=== PATIENT | female | born 2000 | race Hispanic/Latino ===

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

== ENCOUNTER 2021-05-05 23:56 | Emergency (ER) | payer OTHER, SELFPAY ==
[2021-05-06 01:26] LABS: Absolute Lymphocytes (CBC) 1.7 K/uL (0.7-4.9); Hematocrit 33.9 % (36.0-45.0); Lymphocytes % 22.7 % (15.3-44.8); MPV 8.9 fL (7.6-11.3); RBC Red Blood Cell Count 3.67 M/uL (3.86-4.86)
[2021-05-06 01:29] LABS: Urine Blood 3+ (Negative); Urine Glucose Negative (Negative); Urine Protein Negative (Negative); Urine Specific Gravity 1.025 (1.005-1.030); Urine pH 6.5 (5.0-7.0)
[2021-05-06 02:10] LABS: Urine Specific Gravity/Preg 1.025 (1.005-1.030)
[2021-05-06 03:06] LABS: ALT/SGPT 15 U/L (12-78); AST/SGOT 16 U/L (15-37); Albumin 4.2 g/dL (3.4-5.0); Alkaline Phosphatase 56 U/L (45-117); BUN Blood Urea Nitrogen 10 mg/dL (7-18); Bicarbonate 23 mmol/L (21-32); Bilirubin Total 0.8 mg/dL (0.2-1.0); Glucose Level 119 mg/dL (74-106); Lipase 120 U/L (73-393); Potassium 3.8 mmol/L (3.5-5.1); Protein, Total 7.8 g/dL (6.4-8.2); Sodium Level 138 mmol/L (136-145)
--- NOTE | 2021-05-06 05:53 | ER ---
Nurse's Notes [facility] Name: Nava Maciel Age: 20 yrs Sex: Female : 2000 Arrival Date: 05/06/2021 Time: 00:02 Bed 20 Private MD: Diagnosis: Abdominal pain, Generalized;Other specified abnormal uterine and vaginal bleeding;Threatened Presentation: 05/06 00:55 Chief complaint: Patient states: "I am having lower abdominal pain, I think it's my as6 appendix, it's hard for me to move around" pt says she is having N/V/D, denies urinary symptoms. Coronavirus screen: At this time, the client does not indicate any symptoms associated with coronavirus-19. Ebola Screen: No symptoms or risks identified at this time. Initial Sepsis Screen: Does the patient meet any 2 criteria? No. Patient's initial sepsis screen is negative. Does the patient have a suspected source of infection? No. Patient's initial sepsis screen is negative. Risk Assessment: Do you want to hurt yourself or someone else? Patient reports no desire to harm self or others. Onset of symptoms was May 05, 2021. 00:55 Method Of Arrival: Ambulatory as6 00:55 Acuity: BRUNO 3 as6 Triage Assessment: 01:01 General: Appears uncomfortable, Behavior is calm, cooperative. Pain: Complains of pain as6 in right lower quadrant and left lower quadrant Quality of pain is described as crampy. GI: Reports lower abdominal pain, diarrhea, nausea, vomiting. 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 - Social history:: Smoking status: Patient denies any tobacco usage or history of. Screenin:45 Abuse screen: Denies threats or abuse. Denies injuries from another. Nutritional froylan screening: No deficits noted. Tuberculosis screening: No symptoms or risk factors identified. Fall Risk None identified. Assessment: 02:10 Reassessment: I recv'd the pt to room 20 at this time. froylan 02:45 GI: Bowel sounds. froylan 02:46 GI: Abd is soft and non tender X 4 quads. froylan 03:03 Reassessment: US is at bedside performing the exam. froylan 05:56 Reassessment: The pt has been dc'd and I am awaiting dc instructions to print. froylan 06:41 Reassessment: Per Dr. Burgess, we are waiting on the beta. froylan Vital Signs: 00:55 BP 98 / 68; Pulse 81; Resp 18 S; Temp 99.5(TE); Pulse Ox 100% on R/A; Weight 52.16 kg as6 (R); Height 5 ft. 1 in. (154.94 cm) (R); Pain 7/10; 02:15 BP 115 / 70; Pulse 101; Resp 16; Temp 98.8; Pulse Ox 100% on R/A; Pain 1/10; froylan 02:45 BP 107 / 63; Pulse 94; Resp 16; Pulse Ox 100% on R/A; Pain 1/10; froylan 04:57 BP 106 / 54; Pulse 88; Resp 16; Temp 98.5; Pulse Ox 100% on R/A; Pain 0/10; froylan 05:56 BP 105 / 63; Pulse 88; Resp 16; Temp 98.5; Pulse Ox 100% on R/A; Pain 0/10; froylan 07:08 BP 109 / 66; Pulse 81; Resp 16; Pulse Ox 99% on R/A; ab2 00:55 Body Mass Index 21.73 (52.16 kg, 154.94 cm) as6 ED Course: 00:02 Patient arrived in ED. wm 00:23 Leoncio Burgess MD is Attending Physician. kdr 01:00 Triage completed. as6 01:01 Arm band placed on. as6 01:08 Missed attempt(s): 20 gauge in right antecubital area. Bleeding controlled, band aid as6 applied, catheter tip intact. 01:14 CBC with Diff Sent. as6 01:14 CMP Sent. as6 01:14 Lipase Sent. as6 02:10 Sandra Reyes, RN is Primary Nurse. froylan 02:45 No provider procedures requiring assistance completed. froylan 02:46 Patient has correct armband on for positive identification. Bed in low position. Call froylan light in reach. 03:54 TRANSVAG OB In Process Unspecified. EDMS 07:08 Patient did not have IV access during this emergency room visit. ab2 Administered Medications: No medications were administered Outcome: 02:46 Condition: stable froylan 05:52 Discharge ordered by . kdr 07:08 Discharged to home ambulatory, with family. ab2 07:08 Discharge instructions given to patient, family, Instructed on discharge instructions, follow up and referral plans. Demonstrated understanding of instructions, follow-up care. 07:09 Patient left the ED. ab2 Signatures: Dispatcher [employer] EDIL Leoncio Burgess MD MD kdr Marsh, Wendy wm Slawson, Ashby, RN RN as6 Sandra Reyes RN RN Wyatt Chand ab2
--- NOTE | 2021-05-06 05:53 | EDPHYS ---
Physician Documentation [facility] Name: Nava Maciel Age: 20 yrs Sex: Female : 2000 Arrival Date: 05/06/2021 Time: 00:02 Bed 20 Private MD: ED Physician Leoncio Burgess HPI: 05/06 06:34 This 20 yrs old Female presents to ER via Ambulatory with complaints of kdr Abdominal Pain. 06:34 The patient presents with abdominal pain that is diffuse. kdr LEAK HUNTER: 01:02 LMP 04/30/2021 as6 Historical: - Allergies: 01:00 No Known Allergies; as6 - Home Meds: 01:00 None [Active]; as6 - PMHx: 01:00 None; as6 - PSHx: 01:00 None; as6 - Immunization history:: Client reports receiving the 2nd dose of the Covid vaccine, pfizer. - Social history:: Smoking status: Patient denies any tobacco usage or history of. ROS: 06:35 Constitutional: Negative for fever, chills, and weight loss, Eyes: Negative for injury, kdr pain, redness, and discharge, Neck: Negative for injury, pain, and swelling, Cardiovascular: Negative for chest pain, palpitations, and edema, Respiratory: Negative for shortness of breath, cough, wheezing, and pleuritic chest pain, Back: Negative for injury and pain, MS/Extremity: Negative for injury and deformity, Skin: Negative for injury, rash, and discoloration, Neuro: Negative for headache, weakness, numbness, tingling, and seizure activity. Psych: Negative for depression, anxiety, suicide ideation, homicidal ideation, and hallucinations, Allergy/Immunology: Negative for hives, rash, and allergies, Endocrine: Negative for neck swelling, polydipsia, polyuria, polyphagia, and marked weight changes, Hematologic/Lymphatic: Negative for swollen nodes, abnormal bleeding, and unusual bruising. 06:35 Abdomen/GI: Positive for abdominal pain, nausea, abdominal cramps, Negative for black/tarry stool, rectal pain, rectal bleeding, bowel incontinence. Exam: 06:35 Constitutional: This is a well developed, well nourished patient who is awake, alert, kdr and in no acute distress. Head/Face: Normocephalic, atraumatic. Eyes: Pupils equal round and reactive to light, extra-ocular motions intact. Lids and lashes normal. Conjunctiva and sclera are non-icteric and not injected. Cornea within normal limits. Periorbital areas with no swelling, redness, or edema. Neck: Trachea midline, no thyromegaly or masses palpated, and no cervical lymphadenopathy. Supple, full range of motion without nuchal rigidity, or vertebral point tenderness. No Meningismus. Chest/axilla: Normal chest wall appearance and motion. Nontender with no deformity. No lesions are appreciated. Cardiovascular: Regular rate and rhythm with a normal S1 and S2. No gallops, murmurs, or rubs. Normal PMI, no JVD. No pulse deficits. Respiratory: Lungs have equal breath sounds bilaterally, clear to auscultation and percussion. No rales, rhonchi or wheezes noted. No increased work of breathing, no retractions or nasal flaring. Back: No spinal tenderness. No costovertebral tenderness. Full range of motion. Skin: Warm, dry with normal turgor. Normal color with no rashes, no lesions, and no evidence of cellulitis. MS/ Extremity: Pulses equal, no cyanosis. Neurovascular intact. Full, normal range of motion. Neuro: Awake and alert, GCS 15, oriented to person, place, time, and situation. Cranial nerves II-XII grossly intact. Motor strength 5/5 in all extremities. Sensory grossly intact. Cerebellar exam normal. Normal gait. Psych: Awake, alert, with orientation to person, place and time. Behavior, mood, and affect are within normal limits. 06:35 Abdomen/GI: Inspection: abdomen appears normal, Bowel sounds: active, Palpation: soft, mild abdominal tenderness, in the abdomen diffusely, mass, is not appreciated, rebound tenderness, is not appreciated, voluntary guarding, is not appreciated, involuntary guarding, is not appreciated, Indicators: Vital Signs: 00:55 BP 98 / 68; Pulse 81; Resp 18 S; Temp 99.5(TE); Pulse Ox 100% on R/A; Weight 52.16 kg as6 (R); Height 5 ft. 1 in. (154.94 cm) (R); Pain 7/10; 02:15 BP 115 / 70; Pulse 101; Resp 16; Temp 98.8; Pulse Ox 100% on R/A; Pain 1/10; froylan 02:45 BP 107 / 63; Pulse 94; Resp 16; Pulse Ox 100% on R/A; Pain 1/10; froylan 04:57 BP 106 / 54; Pulse 88; Resp 16; Temp 98.5; Pulse Ox 100% on R/A; Pain 0/10; froylan 05:56 BP 105 / 63; Pulse 88; Resp 16; Temp 98.5; Pulse Ox 100% on R/A; Pain 0/10; froylan 07:08 BP 109 / 66; Pulse 81; Resp 16; Pulse Ox 99% on R/A; ab2 00:55 Body Mass Index 21.73 (52.16 kg, 154.94 cm) MDM: 05:52 Patient medically screened. kdr 06:35 Data reviewed: vital signs, nurses notes, lab test result(s), radiologic studies. kdr Counseling: I had a detailed discussion with the patient and/or guardian regarding: the historical points, exam findings, and any diagnostic results supporting the discharge/admit diagnosis, lab results, radiology results, the need for outpatient follow up. 05/06 01:03 Order name: CBC with Diff; Complete Time: 02:09 05/06 01:03 Order name: CMP; Complete Time: 03:14 05/06 01:03 Order name: Lipase; Complete Time: 03:14 05/06 01:29 Order name: Urine Dipstick-Ancillary; Complete Time: 02:09 EDMS 05/06 01:35 Order name: Urine --Ancillary (enter results); Complete Time: 02:11 mw2 05/06 02:15 Order name: HCG-Quantitative bb 05/06 01:03 Order name: IV Saline Lock as05/06 01:03 Order name: Labs collected and sent; Complete Time: 01:14 05/06 01:03 Order name: Urine Dipstick-Ancillary (obtain specimen); Complete Time: 01:29 05/06 01:03 Order name: Urine Test (obtain specimen); Complete Time: 01:29 05/06 03:36 Order name: TRANSVAG OB EDMS Administered Medications: No medications were administered Disposition Summary: 05/06/21 05:52 Discharge Ordered Location: Home kdr Problem: new kdr Symptoms: have improved kdr Condition: Stable kdr Diagnosis - Abdominal pain, Generalized kdr - Other specified abnormal uterine and vaginal bleeding kdr - Threatened kdr Followup: kdr - With: Private Physician - When: 2 - 3 days - Reason: If symptoms return, Further diagnostic work-up, Recheck today's complaints, Continuance of care, Re-evaluation by your physician Discharge Instructions: - Discharge Summary Sheet kdr - Threatened Miscarriage kdr Forms: - Medication Reconciliation Form kdr - Thank You Letter kdr - Antibiotic Education kdr - Prescription Opioid Use kdr Signatures: Dispatcher [employer] EDMS Leoncio Burgess MD MD kdr Ryan Pierson RN RN as6 Corrections: (The following items were deleted from the chart) 03:36 02:54 OB Limited+[email or web address] ordered. [facility]
[2021-05-06 07:18] VITALS: TEMP 98.5
[2021-05-06 07:20] VITALS: BP 109/66; O2SAT 99
--- NOTE | 2021-05-06 11:41 | RAD REPORT ---
EXAM DESCRIPTION: US - TRANSVAG OB - 05/06/2021 5:24 am CLINICAL HISTORY: 20 years Female ABD PAIN, LMP: Not provided, EGA: Not provided, TRA: Not provided TECHNIQUE: Sonographic imaging of the pelvis was performed endovaginally on 05/06/2021 at 3: 11 AM COMPARISON: No prior studies were available for comparison. FINDINGS: The uterus is normal in size and configuration and measures: 6.6 x 3.8 x 4.1 cm. There is oval hypoechoic saclike structure within the endometrial canal which contains some echogenic debris. No discrete yolk sac or pole is identified. The right ovary is mildly enlarged and measures: 5.2 x 3.3 x 3.9 cm. There are 2 anechoic cysts pete sing from the right ovary. The larger cyst measures approximately 2.9 x 2.6 x 2.8 cm. There is normal pulsed and color Doppler flow to the right ovary. The left ovary is grossly normal in size, shape and echogenicity and measures: 2.6 x 1.2 x 1.4 cm. There is normal pulsed and color Doppler flow to the left ovary. There are no left adnexal mass lesions.. There is a small amount of nonspecific free fluid in the posterior cul-de-sac. IMPRESSION: 1. Oval hypoechoic saclike structure within the endometrial canal which contains some ec hogenic debris but no discrete yolk sac or pole. This could potentially represent a nonviable g estational sac. Continue serologic and imaging follow-up. 2. There are 2 benign-appearing cysts arising from the right ovary. The larger cyst measures approxim ately 2.9 cm in greatest dimension. 3. Small amount of nonspecific free fluid in the posterior cul-de-sac. Electronically signed by: Vivien Ontiveros DO 05/06/2021 5:14 AM CDT Due to temporary technical issues with the PACS/Fluency reporting system, reports are being signed by the in house radiologists without review as a courtesy to insure prompt reporting. The interpreting radiologist is fully responsible for the content of the report.
== END 2021-05-06 07:09 | disposition home or self-care (01) ==
LOC: ER 23:56
DX: O20.0 Threatened abortion (principal); R10.84 Generalized abdominal pain
CPT/HCPCS: 36415; 76813; 80053; 81003; 81025; 83690; 84702; 85025; 99283